=== PATIENT | male | born 1950 | race Caucasian/White ===

== ENCOUNTER 2018-03-12 09:39 | Emergency (ER) | payer BC ==
[2018-03-12 09:54] VITALS: BP 144/65
--- NOTE | 2018-03-12 10:17 | UC ---
Respiratory Complaint HPI - HPI Summary HPI Summary: Pt presents with c/o gradual onset of nasal congestion, cough, chest congestion and generalized malaise X 3 days. Pt reports that he had "night sweat" last night. Pt is former 1-2 ppd smoker X 20 years. - History of Current Complaint Chief Complaint: UCRespiratory Stated Complaint: CHEST CONGESTION Time Seen by Provider: 03/12/18 09:57 Hx Obtained From: Patient Onset/Duration: Gradual Onset, Lasting Days, Worse Since - onset Timing: Constant Severity Initially: Mild Severity Currently: Severe Pain Intensity: 10 Character: Cough: Nonproductive Aggravating Factors: Exertion, Deep Breaths, Recumbent Position Alleviating Factors: Nothing Associated Signs And Symptoms: Positive: URI, Nasal Congestion - Risk Factors Pulmonary Embolism Risk Factors: Smoking - hx of Cardiac Risk Factors: Smoking, Elevated Lipids Tuberculosis Risk Factors: Smoking - hx of - Allergies/Home Medications Allergies/Adverse Reactions: Allergies Allergy/AdvReac Type Severity Reaction Status Date / Time aspirin Allergy Hives Verified 03/12/18 09:50 NSAIDS (Non-Steroidal Allergy Hives Verified 03/12/18 09:50 Anti-Inflamma PMH/Surg Hx/FS Hx/Imm Hx Previously Healthy: Yes Endocrine History: Dyslipidemia Cardiovascular History: Cardiac Disease Respiratory History: COPD Other History Of: Negative For: HIV - Surgical History Surgical History: Yes Surgery Procedure, Year, and Place: sinus surgery x3. carpel tunnel. 2 knee surg. pyloric stenosis - Family History Known Family History: Positive: Cardiac Disease - Social History Lives: With Family Alcohol Use: Daily Alcohol Amount: 2 beers daily Substance Use Type: None Smoking Status (MU): Former Smoker Length of Time of Smoking/Using Tobacco: 1-2 PPD x 20 Years Have You Smoked in the Last Year: No When Did the Patient Quit Smoking/Using Tobacco: ~1995 - Immunization History Most Recent Influenza Vaccination: none Review of Systems Constitutional: Chills, Fatigue Skin: Negative Eyes: Negative ENT: Sinus Congestion Respiratory: Cough Cardiovascular: Negative Gastrointestinal: Negative Genitourinary: Negative Motor: Negative Neurovascular: Negative Musculoskeletal: Negative Neurological: Negative Psychological: Negative Is Patient Immunocompromised?: No All Other Systems Reviewed And Are Negative: Yes Physical Exam Triage Information Reviewed: Yes Appearance: Ill-Appearing Vital Signs: Initial Vital Signs Temp 98.4 F 03/12/18 09:49 Pulse 66 03/12/18 09:49 Resp 20 10/27/18 09:49 BP 144/65 03/12/18 09:49 Pulse Ox 96 03/12/18 09:49 Vital Signs Reviewed: Yes Eye Exam: Normal ENT: Positive: Nasal congestion, Sinus tenderness Dental Exam: Normal Neck exam: Normal Respiratory Exam: Normal Cardiovascular Exam: Normal Musculoskeletal Exam: Normal Neurological Exam: Normal Psychological Exam: Normal Skin Exam: Normal UC Diagnostic Evaluation - Laboratory O2 Sat by Pulse Oximetry: 96 - Radiology Radiology Interpretation Completed By: Radiologist - IMPRESSION: FINDINGS SUGGESTIVE OF COPD, NO EVIDENCE FOR ACUTE FINDING. Respiratory Course/Dx - Differential Dx/Diagnosis Differential Diagnosis/HQI/PQRI: Bronchitis, Influenza, Sinusitis Provider Diagnoses: bronchitis Discharge - Sign-Out/Discharge Documenting (check all that apply): Patient Departure All imaging exams completed and their final reports reviewed: Yes - Discharge Plan Condition: Stable Disposition: HOME Prescriptions: Amoxicillin PO (*) [Amoxicillin 875 MG (*)] 875 mg PO Q12H #20 tab predniSONE TAB* [Deltasone 10 MG TAB*] 30 mg PO DAILY #12 tab Patient Education Materials: Acute Bronchitis (ED) Referrals: Darrell Murdock MD [Primary Care Provider] - If Needed - Billing Disposition and Condition Condition: STABLE Disposition: Home - Attestation Statements Provider Attestation: I was available for consult. This patient was seen by the CECILIA. The patient was not presented to, seen by, or examined by me. -Shirley
--- NOTE | 2018-03-12 10:19 | RAD ---
INDICATION: Cough and shortness of breath. COMPARISON: There are no relevant prior studies available for comparison. TECHNIQUE: Dual-energy PA and lateral views of the chest were obtained. FINDINGS: The heart is within normal limits in size. Mediastinal and hilar contours appear within normal limits. The lungs are hyperinflated and clear. No pleural effusion is seen. IMPRESSION: FINDINGS SUGGESTIVE OF COPD, NO EVIDENCE FOR ACUTE FINDING.
[2018-03-12] MEDS ORDERED: Albuterol/Ipratropium NEB.SOL* Albuterol 2.5 MG/Ipratropium 0.5 MG 3 ML INH ONE (10:43)
== END 2018-03-12 11:03 | disposition home or self-care (01) ==
LOC: UCCORT 09:39
DX: J40 Bronchitis, not specified as acute or chronic (principal); J44.9 Chronic obstructive pulmonary disease, unspecified; E78.5 Hyperlipidemia, unspecified; I51.9 Heart disease, unspecified; Z87.891 Personal history of nicotine dependence; Z88.6 Allergy status to analgesic agent
CPT/HCPCS: 71046; 99212; A9270-GY; G0463

== ENCOUNTER 2018-05-20 08:46 | Emergency (ER) | payer BC ==
[2018-05-20 09:01] VITALS: BP 140/76
--- NOTE | 2018-05-20 09:45 | UC ---
Throat Pain/Nasal Dexter HPI - HPI Summary HPI Summary: sore throat x 1 day + dry cough , no fever, no chills, mild nasal congestion , no pnd , no sob - History of Current Complaint Chief Complaint: UCRespiratory Stated Complaint: SORE THROAT COUGH CONGESTION Time Seen by Provider: 05/20/18 09:30 Hx Obtained From: Patient Onset/Duration: Gradual Onset, Lasting Days - 1, Still Present Severity: Moderate Pain Intensity: 5 Pain Scale Used: 0-10 Numeric Cough: Nonproductive Associated Signs & Symptoms: Negative: Dysphagia, FB Sensation, Drooling, Wheezing, Hoarseness, Sinus Discomfort, Nasal Discharge, Fever, Vomiting, Rash - Allergies/Home Medications Allergies/Adverse Reactions: Allergies Allergy/AdvReac Type Severity Reaction Status Date / Time aspirin Allergy Hives Verified 05/20/18 08:58 NSAIDS (Non-Steroidal Allergy Hives Verified 05/20/18 08:58 Anti-Inflamma PMH/Surg Hx/FS Hx/Imm Hx Cardiovascular History: Hypertension Respiratory History: COPD GI/ History: Gastroesophageal Reflux Other History Of: Negative For: HIV - Surgical History Surgical History: Yes Surgery Procedure, Year, and Place: sinus surgery x3. carpel tunnel. 2 knee surg. pyloric stenosis - Family History Known Family History: Positive: None, Cardiac Disease - Social History Alcohol Use: Daily Alcohol Amount: 2 beers daily Substance Use Type: None Smoking Status (MU): Former Smoker Length of Time of Smoking/Using Tobacco: 1-2 PPD x 20 Years Have You Smoked in the Last Year: No When Did the Patient Quit Smoking/Using Tobacco: ~1995 - Immunization History Most Recent Influenza Vaccination: none Review of Systems All Other Systems Reviewed And Are Negative: Yes Constitutional: Positive: Negative Skin: Positive: Negative Eyes: Positive: Negative ENT: Positive: Sore Throat Respiratory: Positive: Cough Cardiovascular: Positive: Negative Is Patient Immunocompromised?: No Physical Exam Triage Information Reviewed: Yes Appearance: Well-Appearing, No Pain Distress, Well-Nourished Vital Signs: Initial Vital Signs Temp 98.3 F 05/20/18 08:57 Pulse 68 05/20/18 08:57 Resp 16 05/20/18 08:57 BP 140/76 05/20/18 08:57 Pulse Ox 97 05/20/18 08:57 Vital Signs Reviewed: Yes Eye Exam: Normal Eyes: Positive: Conjunctiva Clear ENT: Positive: Normal ENT inspection, Hearing grossly normal, Pharyngeal erythema. Negative: Nasal congestion, Nasal drainage Neck exam: Normal Neck: Positive: Supple, Nontender, No Lymphadenopathy Respiratory: Positive: Chest non-tender, Lungs clear, Normal breath sounds Cardiovascular: Positive: RRR, No Murmur, Pulses Normal Skin Exam: Normal Throat Pain/Nasal Course/Dx - Differential Dx/Diagnosis Provider Diagnosis: URI (upper respiratory infection) Discharge - Sign-Out/Discharge Documenting (check all that apply): Patient Departure All imaging exams completed and their final reports reviewed: No Studies - Discharge Plan Condition: Stable Disposition: HOME Patient Education Materials: Upper Respiratory Infection (ED) Referrals: Darrell Murdock MD [Primary Care Provider] - If Needed Additional Instructions: viral illness no need for antibiotics - Billing Disposition and Condition Condition: STABLE Disposition: Home
== END 2018-05-20 09:38 | disposition home or self-care (01) ==
LOC: UCCORT 08:46
DX: J06.9 Acute upper respiratory infection, unspecified (principal); Z88.6 Allergy status to analgesic agent; I10 Essential (primary) hypertension; Z87.891 Personal history of nicotine dependence
CPT/HCPCS: 99211; G0463

== ENCOUNTER 2018-11-23 11:34 | Emergency (ER) | payer BC ==
[2018-11-23 11:53] VITALS: BP 148/78
--- NOTE | 2018-11-23 12:04 | UC ---
UC General HPI - HPI Summary HPI Summary: PT IS C/O A 2 DAY HX OF SINUS CONGESTION/PRESSURE, COUGH AND CHEST CONGESTION. NO CP OR FEVER. HX COPD. HAS PRN RESCUE INHALER WHICH HE RARELY NEEDS BUT HAS USED A FEW TIMES WITH THIS. - History of Current Complaint Chief Complaint: UCGeneralIllness Stated Complaint: CONGESTION,HEADACHE Time Seen by Provider: 11/23/18 11:51 Hx Obtained From: Patient Onset/Duration: Gradual Onset Timing: Constant Pain Intensity: 9 - Allergy/Home Medications Allergies/Adverse Reactions: Allergies Allergy/AdvReac Type Severity Reaction Status Date / Time aspirin Allergy Hives Verified 11/23/18 11:54 NSAIDS (Non-Steroidal Allergy Hives Verified 11/23/18 11:54 Anti-Inflamma Home Medications: Home Medications Irbesartan/Hydrochlor 150/12.5 1 tab PO DAILY 11/23/18 [History Confirmed ] PMH/Surg Hx/FS Hx/Imm Hx Cardiovascular History: Hypertension Respiratory History: COPD GI/ History: Gastroesophageal Reflux Other History Of: Negative For: HIV - Surgical History Surgical History: Yes Surgery Procedure, Year, and Place: sinus surgery x3. carpel tunnel. 2 knee surg. pyloric stenosis - Family History Known Family History: Positive: None, Cardiac Disease - Social History Alcohol Use: Daily Alcohol Amount: 2 beers daily Substance Use Type: None Smoking Status (MU): Former Smoker Length of Time of Smoking/Using Tobacco: 1-2 PPD x 20 Years Have You Smoked in the Last Year: No When Did the Patient Quit Smoking/Using Tobacco: ~1995 - Immunization History Most Recent Influenza Vaccination: none Review of Systems All Other Systems Reviewed And Are Negative: Yes ENT: Positive: Sore Throat - NOW RESOLVED, Nasal Discharge, Sinus Congestion Respiratory: Positive: Shortness Of Breath, Cough Cardiovascular: Negative: Palpitations, Chest Pain Physical Exam Triage Information Reviewed: Yes Appearance: Well-Appearing Vital Signs: Initial Vital Signs Temp 98.2 F 11/23/18 11:48 Pulse 68 11/23/18 11:48 Resp 18 11/23/18 11:48 BP 148/78 11/23/18 11:48 Pulse Ox 98 11/23/18 11:48 Vital Signs Reviewed: Yes Eyes: Positive: Conjunctiva Clear ENT: Positive: Pharynx normal, Nasal congestion, TMs normal. Negative: Nasal drainage, Sinus tenderness Neck: Positive: Supple, Nontender, No Lymphadenopathy Respiratory: Positive: No respiratory distress, Decreased breath sounds, Other: - Cough is congested.. Negative: Crackles, Rhonchi, Wheezing Cardiovascular: Positive: RRR, No Murmur Abdomen Description: Positive: Nontender Musculoskeletal: Positive: ROM Intact Neurological: Positive: Alert Psychological: Positive: Age Appropriate Behavior Skin Exam: Normal Course/Dx - Differential Dx - Multi-Symptom Differential Diagnoses: Other - non toxic. not hypoxic. no concern for pneumonia. - Diagnoses Provider Diagnosis: URI (upper respiratory infection), COPD exacerbation Discharge - Sign-Out/Discharge Documenting (check all that apply): Patient Departure All imaging exams completed and their final reports reviewed: No Studies - Discharge Plan Condition: Stable Disposition: HOME Prescriptions: Amoxicillin/Clavulanate TAB* [Augmentin TAB 875*] 875 mg PO BID 7 Days #14 tab predniSONE [Prednisone 20 MG TAB] 40 mg PO DAILY 5 Days #10 tablet Patient Education Materials: Upper Respiratory Infection (DC), COPD (Chronic Obstructive Pulmonary Disease) (ED) Referrals: Darrell Murdock MD [Primary Care Provider] - 7 Days Additional Instructions: USE YOUR RESCUE INHALER 2 PUFFS EVERY 6 HOURS - Billing Disposition and Condition Condition: STABLE Disposition: Home
== END 2018-11-23 12:22 | disposition home or self-care (01) ==
LOC: UCCORT 11:34
DX: J06.9 Acute upper respiratory infection, unspecified (principal); J44.1 Chronic obstructive pulmonary disease with (acute) exacerbation; I10 Essential (primary) hypertension; Z87.891 Personal history of nicotine dependence
CPT/HCPCS: 99212; G0463

== ENCOUNTER 2019-07-01 19:43 | Emergency (ER) | payer BC ==
[2019-07-01 20:41] VITALS: BP 149/66
--- NOTE | 2019-07-01 20:45 | UC ---
Lower Extremity/Ankle HPI - HPI Summary HPI Summary: 68-year-old male presents with complaints of right great toe pain. States the pain woke him up during the night last night and has progressively worsened throughout the day. Reports redness and swelling of the MTP joint. No known injury. Denies fever or chills. - History of Current Complaint Chief Complaint: UCLowerExtremity Stated Complaint: PAIN/SWELLING RIGHT BIG TOE Time Seen by Provider: 07/01/19 20:42 Hx Obtained From: Patient Pain Intensity: 9 - Allergies/Home Medications Allergies/Adverse Reactions: Allergies Allergy/AdvReac Type Severity Reaction Status Date / Time aspirin Allergy Hives Verified 07/01/19 20:33 NSAIDS (Non-Steroidal Allergy Hives Verified 07/01/19 20:33 Anti-Inflamma Home Medications: Home Medications Cholecalciferol TAB* [Vitamin D TAB*] 400 unit PO DAILY 07/01/19 [History Confirmed 07/01/19] PMH/Surg Hx/FS Hx/Imm Hx Endocrine History: Dyslipidemia Cardiovascular History: Hypertension Respiratory History: COPD Other History Of: Negative For: HIV - Surgical History Surgical History: Yes Surgery Procedure, Year, and Place: sinus surgery x3. carpel tunnel. 2 knee surg. pyloric stenosis - Family History Known Family History: Positive: Cardiac Disease, Hypertension - Social History Occupation: Retired Lives: With Family Alcohol Use: Daily Alcohol Amount: 2 beers daily Substance Use Type: None Smoking Status (MU): Former Smoker Length of Time of Smoking/Using Tobacco: 1-2 PPD x 20 Years Have You Smoked in the Last Year: No When Did the Patient Quit Smoking/Using Tobacco: ~1995 - Immunization History Most Recent Influenza Vaccination: none Review of Systems All Other Systems Reviewed And Are Negative: Yes Constitutional: Negative: Fever, Chills Skin: Negative: Bruising Respiratory: Positive: Negative Cardiovascular: Positive: Negative Gastrointestinal: Positive: Negative Genitourinary: Positive: Negative Motor: Negative: Weakness Neurovascular: Negative: Decreased Sensation Musculoskeletal: Positive: Arthralgia - See HPI Neurological/Mental Status: Positive: Negative Physical Exam - Summary Physical Exam Summary: GENERAL APPEARANCE: Well developed, well nourished, alert and cooperative, and appears to be in no acute distress. CARDIAC: Normal S1 and S2. No S3, S4 or murmurs. Rhythm is regular. There is no peripheral edema, cyanosis or pallor. Extremities are warm and well perfused. Capillary refill is less than 2 seconds. Peripheral pulses intact. LUNGS: Clear to auscultation without rales, rhonchi, wheezing or diminished breath sounds. ABDOMEN: Positive bowel sounds. Soft, nondistended, nontender. No guarding or rebound. No masses or hepatosplenomegally. MUSKULOSKELETAL: ROM intact to all extremities. No joint erythema or tenderness. Normal muscular development. Normal gait. EXTREMITIES: Tenderness of the MTP of the right great toe with erythema, edema, and increased warmth. No gross deformity. Circulation and sensation intact. SKIN: Skin normal color, texture and turgor with no lesions or eruptions. Triage Information Reviewed: Yes Vital Signs: Initial Vital Signs Temp 98.1 F 07/01/19 20:35 Pulse 64 07/01/19 20:35 Resp 17 07/01/19 20:35 BP 149/66 07/01/19 20:35 Pulse Ox 97 07/01/19 20:35 Vital Signs Reviewed: Yes Lower Extremity Course/Dx - Course Course Of Treatment: 68-year-old male presents with complaints of right great toe pain. States the pain woke him up during the night last night and has progressively worsened throughout the day. Reports redness and swelling of the MTP joint. No known injury. Denies fever or chills. Afebrile. Hypertensive otherwise vital signs stable. Patient had tenderness of the MTP of the right great toe with erythema , edema, and increased warmth. No gross deformity. Circulation and sensation intact. Cussed with patient that his symptoms are consistent with an acute gouty arthritis. We will start him on a course of prednisone 40 mg daily 5 days. He received the first dose in the clinic. He is to follow-up with his primary care provider in 5 days if symptoms are not improving. Anticipatory guidance warning symptoms were reviewed with the patient. Verbalizes understanding and agrees with plan of care. - Differential Dx/Diagnosis Differential Diagnosis/HQI/PQRI: Arthritis, Cellulitis, Gout, Infection Provider Diagnosis: Gouty arthritis of right great toe Discharge ED - Sign-Out/Discharge Documenting (check all that apply): Patient Departure All imaging exams completed and their final reports reviewed: No Studies - Discharge Plan Condition: Stable Disposition: HOME Prescriptions: predniSONE 20 mg TAB [Deltasone 20 MG TAB*] 40 mg PO DAILY 4 Days #8 tab Patient Education Materials: Low Purine Diet (ED), Gout (ED) Referrals: Darrell Murdock MD [Primary Care Provider] - 5 Days (If no improvement.) Additional Instructions: Your history and exam are consistent with gout. We will start she on a steroid to help with the inflammation. Take prednisone 40 mg daily for 5 days. We gave you the first dose in the clinic today. I have provided you with information on a low purine diet that can help prevent gout flareups. Follow-up with your primary care provider in 5 days if symptoms are not improving. Seek immediate medical attention if you develop fever greater than 100.5 F, have redness that rapidly spreads, red streaking up the foot or leg, increased swelling of the toe, or any worsening of symptoms. - Billing Disposition and Condition Condition: STABLE Disposition: Home
== END 2019-07-01 20:57 | disposition home or self-care (01) ==
LOC: UCCORT 19:43
DX: M10.9 Gout, unspecified (principal); I10 Essential (primary) hypertension; J44.9 Chronic obstructive pulmonary disease, unspecified; Z87.891 Personal history of nicotine dependence; Z88.6 Allergy status to analgesic agent
CPT/HCPCS: 99212; G0463; J7512